=== PATIENT | female | born 1975 | race Caucasian/White ===

== ENCOUNTER → 2016-10-18 | Day surgery (SDC) | payer OTHER ==
[~2016-10-18] VITALS: Ht 162.6 cm; Wt 94.3 kg
[~2016-10-18] MED LIST: IBUPROFEN800 MG PO; NATURAL IRON65 MG PO; PERCOCET 325 MG1 TA2 PO; PRENATAL1 TA2 PO; SYNTHROID0.025 MG PO; SYNTHROID112 MCG PO; ULTRAM50 M1 PO
--- NOTE | 2016-10-18 10:36 | Operative Report ---
Operative/Inv Procedure Report Surgery Date: 10/18/16 Name of Procedure: suction D&C Pre-Operative Diagnosis: Missed AB Post-Operative Diagnosis: same Estimated Blood Loss: scant Surgeon/Rod Puller: SUKHI PANTOJA,ABI Centeno Anesthesia: tiva Specimens: poc Operative/Procedure Note Note: The patient was taken to the operating room and anesthesia was induced the patient was prepped and draped in usual sterile fashion a single-tooth tenaculum was placed on the anterior lip of the cervix the cervix was dilated with a Hegar dilator to number 7 a curved suction curette #7 was placed through the endocervical canal with a corkscrew motion suction was applied moderate amount of products of conception was removed. This was followed by a sharp curettage to a good rasp in all 4 quadrants once again the suction curette was passed PRODUCTS of conception were sent to pathology for examination. Patient was given Pitocin the single-tooth tenaculum was removed examination showed the uterus to be firm hemostasis was good patient was then moved to recovery room in good condition
== END ==
LOC: STS 01:18
DX: O02.1 Missed abortion (principal); E03.9 Hypothyroidism, unspecified; L40.50 Arthropathic psoriasis, unspecified
CPT/HCPCS: 88305; J2250

== ENCOUNTER 2016-10-29 05:52 | Emergency (ER) | payer OTHER ==
[~2016-10-29] VITALS: Ht 163.8 cm; Wt 94.3 kg
[~2016-10-29 05:52] MED LIST changes: -ULTRAM50 M1 PO
--- NOTE | 2016-10-29 05:57 | ED CARDIAC/CP/PALPITATIONS ---
History of Present Illness General Chief Complaint: Chest Pain Stated Complaint: CHEST PAIN AND HEADACHE Source: patient Exam Limitations: no limitations Vital Signs & Intake/Output Vital Signs & Intake/Output Vital Signs Date Time Temp Pulse Resp B/P B/P Pulse O2 O2 Flow FiO2 Mean Ox Delivery Rate 10/29 0803 7.4 68 18 101/65 98 10/29 0610 98 Room Air Room Air 10/29 0602 97.2 78 17 121/76 97 Room Air Allergies Coded Allergies: cyclobenzaprine (From FLEXERIL) (UNKNOWN 10/18/16) Reconcile Medications Levothyroxine Sodium (Synthroid) 112 MCG TABLET 1 TAB PO DAILY HASHIMOTOS ( Reported) Triage Nurses Notes Reviewed? yes Onset: Gradual Duration: day(s): Timing: recent history Location: central Radiation: no radiation Activities at Onset: none Prior Chest Pain/Card Workup: no prior chest pain Associated Symptoms: chest pain HPI: 41 yo woman s/p d+c 14 days ago due to miscarriage. She presents with left sided chest pain and shortness of breath as well as mild diffuse headache. Her symptoms began yesterday morning. She has no fever, chills, cough, phlegm, wheezing. She is otherwise well. (OCTAVIA PANTOJA,KATIE Centeno) Past History Travel History Traveled to [place] past 21 day No Medical History Any Pertinent Medical History? 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 No (OCTAVIA PANTOJA,KATIE Centeno) Review of Systems Review of Systems Constitutional: Reports: no symptoms. EENTM: Reports: no symptoms. Respiratory: Reports: no symptoms. Cardiovascular: Reports: no symptoms. GI: Reports: no symptoms. Genitourinary: Reports: no symptoms. Musculoskeletal: Reports: no symptoms. Skin: Reports: no symptoms. Neurological/Psychological: Reports: no symptoms. Hematologic/Endocrine: Reports: no symptoms. Immunologic/Allergic: Reports: no symptoms. All Other Systems: Reviewed and Negative (OCTAVIA PANTOJA,KATIE Centeno) Physical Exam Physical Exam General Appearance: well developed/nourished, mild distress Head: atraumatic, normal appearance Eyes: Bilateral: normal appearance. Ears, Nose, Throat: normal pharynx, normal ENT inspection Neck: normal inspection, supple, full range of motion Respiratory: normal breath sounds, no respiratory distress, left sided parasternal chest wall tenderness to palpation Cardiovascular: regular rate/rhythm Gastrointestinal: normal bowel sounds, soft, non-tender, no organomegaly Back: normal inspection, normal range of motion Extremities: normal inspection, normal capillary refill, normal range of motion, no edema Neurologic/Psych: no motor/sensory deficits, awake, alert, oriented x 3 Skin: intact, normal color, warm/dry Core Measures ACS in differential dx? No Severe Sepsis Present: No Septic Shock Present: No (OCTAVIA PANTOJA,KATIE Centeno) Progress Differential Diagnosis: AMI, costochondritis, musculoskeletal pain, pulmonary embolism, unstable angina Plan of Care: Orders Procedure Date/time Status TROPONIN LEVEL 10/29 605 Complete PARTIAL THROMBOPLASTIN TIME 10/29 605 Complete PROTHROMBIN TIME 10/29 605 Complete D-DIMER 10/29 06 Complete COMPREHENSIVE METABOLIC PANEL 10/29 06 Complete CBC WITHOUT DIFFERENTIAL 10/29 06 Complete EKG 10/29 0554 Active Laboratory Tests 10/29/16 0615: Anion Gap 10, Estimated GFR > 60, BUN/Creatinine Ratio 25.0, Glucose 99, Calcium 9.2, Total Bilirubin 0.6, AST 18, ALT 38, Alkaline Phosphatase 55, Troponin I < 0.01, Total Protein 6.8, Albumin 4.2, Globulin 2.6, Albumin/Globulin Ratio 1.6, PT 10.2, INR 0.97, APTT 38 H, D-Dimer High Sensitivty < 200, CBC w Diff NO MAN DIFF REQ, RBC 4.27, MCV 86.8, MCH 29.4, RDW 14.0, MPV 8.6, Gran % 53.9, Lymphocytes % 35.7, Monocytes % 5.5, Eosinophils % 4.0, Basophils % 0.9, Absolute Granulocytes 4.0, Absolute Lymphocytes 2.6, Absolute Monocytes 0.4, Absolute Eosinophils 0.3, Absolute Basophils 0.1, PUBS MCHC 33.8 Diagnostic Imaging: Viewed by Me: Radiology Read. Discussed w/RAD: Radiology Read. Initial ED EKG: normal axis, normal intervals, normal p-waves, normal QRS complex, normal sinus rhythm Hand-Off Endorsed To: OTONIEL DEMARCO MD Endorsed Time: 0700 Pending: labs, Xray (KATIE DUDLEY MD) CXR Impression: no acute abnormality, no infiltrates, normal size heart, normal mediastinum Rhythm Strip: normal sinus rhythm (OTONIEL DEMARCO MD) Departure Departure Condition: Stable Referrals: PIA GONZALEZ MD (PCP/Family) Departure Forms: Customer Survey General Discharge Information (KATIE DUDLEY MD) Departure Time of Disposition: 817 Disposition: HOME OR SELF CARE Clinical Impression Primary Impression: Chest pain Qualifiers: Chest pain type: unspecified Qualified Code: R07.9 - Chest pain, unspecified Secondary Impressions: Headache Qualifiers: Headache type: unspecified Headache chronicity pattern: unspecified pattern Intractability: not intractable Qualified Code: R51 - Headache Prescriptions: Current Visit Scripts Tramadol HCl (Ultram) 1-2 TAB PO Q6PRN PRN severe pain #30 TAB (OTONIEL DEMARCO MD) Critical Care Note Critical Care Note Critical Care Time: non-applicable (KATIE DUDLEY MD)
[2016-10-29 06:27] LABS: ABSOLUTE BASOPHIL COUNT 0.1 /CUMM (0.0-0.2); ABSOLUTE EOSINOPHIL COUNT 0.3 /CUMM (0.0-0.7); ABSOLUTE LYMPH COUNT 2.6 /CUMM (1.2-3.4); ABSOLUTE MONOCYTE COUNT 0.4 /CUMM (0.10-0.60); BASOPHIL % 0.9 % (0.0-2.0); GRANULOCYTE % 53.9 % (42.2-75.2); MEAN CORPUSCULAR HGB 29.4 PG (27.0-31.0); MEAN CORPUSCULAR HGB CONC 33.8 G/DL (33.0-37.0); MEAN CORPUSCULAR VOLUME 86.8 FL (81.0-99.0); MEAN PLATELET VOLUME 8.6 FL (7.4-10.4); PLATELET COUNT 297 /CUMM (130-400); RED BLOOD CELL CT 4.27 /CUMM (4.20-5.40); WHITE BLOOD CELL COUNT 7.4 /CUMM (4.8-10.8)
[2016-10-29 06:51] LABS: PT 10.2 SEC (9.4-12.5); PTT 38 SEC (25-37)
[2016-10-29 08:03] VITALS: BP 101/65
--- NOTE | 2016-10-29 08:13 | RADIOLOGY REPORT ---
EXAMINATION: XR PORTABLE CHEST CLINICAL INFORMATION: Chest pain COMPARISON: June 25, 2013 TECHNIQUE: Portable AP view of the chest was obtained. FINDINGS: No significant abnormality is noted involving the heart, lungs, mediastinum, bony thorax or soft tissues. IMPRESSION: No acute disease.
[2016-10-29] MEDS ORDERED: ULTRAM50 M1 PO (08:20)
== END 2016-10-29 08:25 ==
LOC: ERH 05:52
PROVIDERS: Pediatrics
DX: R07.9 Chest pain, unspecified (principal); R51 Headache
CPT/HCPCS: 93005; 93010; 96374; J1885